=== PATIENT | female | born 1995 | race Caucasian/White ===

== ENCOUNTER 2017-09-25 21:55 | Observation (INO) | payer OTHER ==
[~2017-09-25] VITALS: Ht 165.1 cm; Wt 66.6 kg
[2017-09-25 21:45] VITALS: BP 123/59; PULSE 63; RESP 17; TEMP 98; O2SAT 99
[~2017-09-25 21:55] MED LIST: DICY10CA12 PO; NORE1TAB57 PO; OMEP20TA93 PO; WHEA1POW13 PO
[2017-09-25] MEDS ORDERED: IOHEXOL 350 MG/ML 10 ML VIAL (for RAD DIAG) IVCONTRAST ONE (22:06)
[2017-09-25] MEDS ORDERED: ONDANSETRON ODT 4 MG TAB PO PRN (23:15)
[2017-09-25] MEDS: NS + KCL 20 MEQ INJ 1,000 ML IV SCH (23:41)
[2017-09-25] MEDS: PANTOPRAZOLE SODIUM 40 MG VIAL IV PUSH SCH (23:42)
[2017-09-25] MEDS: MORPHINE SULFATE 4 MG/ML INJ IV PRN (23:42)
[2017-09-26 04:20] VITALS: BP 118/62; PULSE 62; RESP 16; TEMP 98; O2SAT 99
[2017-09-26 07:48] LABS: ALBUMIN 3.4 GM/DL (3.4-5.0); AST (GOT) 15 U/L (15-37); BICARBONATE 24.9 MEQ/L (21.0-32.0); BLOOD UREA NITROGEN 8 MG/DL (7-18); CALCIUM 8.4 MG/DL (8.5-10.1); CHLORIDE 108 MEQ/L (98-107); CREATININE 0.62 MG/DL (0.50-1.00); GLOMERULAR FILTRATION RATE 122 ML/MIN (>89); GLUCOSE,RANDOM 79 MG/DL (74-106); SODIUM (NA) 141 MEQ/L (136-145)
[2017-09-26 07:50] LABS: ALKALINE PHOSPHATASE 31 U/L (45-117); ALT (GPT) 20 U/L (10-53); TOTAL BILIRUBIN ADULT 0.6 MG/DL (0.2-1.0); TOTAL PROTEIN 6.8 GM/DL (6.4-8.2)
[2017-09-26 08:00] VITALS: BP 101/57; PULSE 79; RESP 14; TEMP 98.9; O2SAT 99
[2017-09-26] MEDS: MORPHINE SULFATE 4 MG/ML INJ IV PRN (08:20)
[2017-09-26] MEDS: NS + KCL 20 MEQ INJ 1,000 ML IV SCH ×2 (09:21→20:43)
[2017-09-26] MEDS: SUCRALFATE 1 GM/10 ML CUP PO SCH ×4 (09:28→20:43)
[2017-09-26] MEDS ORDERED: ACETAMINOPHEN 500 MG CPLT PO PRN (10:00)
[2017-09-26] MEDS ORDERED: ACETAMINOPHEN 325 MG TAB PO ONE (10:00)
--- NOTE | 2017-09-26 10:47 | HHI.HP ---
HPI Service CP Hospitalists Primary Care Physician Unknown Admission Diagnosis Intractable pain Chief Complaint: Abdominal pain Travel History International Travel<30 Days: No Contact w/Intl Traveler <30 Da: No Traveled to Known Affected Are: No History of Present Illness This a 22-year-old female patient with past medical history which includes abdominal pain and constipation. Patient presented to [facility] [place] for evaluation of epigastric pain. Pain started suddenly this afternoon, while using the bathroom. Patient located in the midepigastric area described as throbbing in nature. Pain associated with nausea and vomiting. Patient had one episode of nonbilious nonbloody vomiting prior to presenting to the ER. Patient had drank coffee about four hours prior to this event. Last night patient had 10/10 constant epigastric pain. Pain has improved with Morphine. Patient denies fever, chills, dysuria, increased urinary frequency. Patient endorses issues with bowel patterns her, "whole life." Patient has had intermitted episodes if constipation with hard round pebble like stools varying with liquid diarrhea. Patient has had similar episodes of abdominal pain in the past. Patient reports pain worse with foods high in carbohydrates such as pasta and bread. Patient also reports abdominal pain after drinking coffee. Review of Systems Constitutional: DENIES: Fatigue, Fever, Chills Respiratory: DENIES: Cough, Sputum production, Shortness of breath Cardiovascular: DENIES: Chest pain, Palpitations, Dyspnea on Exertion, Lower Extremity Edema Gastrointestinal: COMPLAINS OF: Abdominal pain, Constipation, Diarrhea, Nausea , Vomiting, DENIES: Black stools, Bloody stools, BRB per rectum Neurologic: DENIES: Abnormal gait, Headache, Localized weakness, Speech Problems Psychiatric: DENIES: Anxiety, Confusion, Depression Past Family Social History Past Medical History Abdominal pain, chronic constipation Past Surgical History No prior surgeries Reported Medications Reports she does not take any medications on a daily basis Allergies: Coded Allergies: No Known Allergies (Unverified Allergy, Unknown, 09/25/17) Family History Reviewed and noncontributory Social History Occasional EtOH use Denies tobacco use or illicit drug use Physical Exam Vital Signs Vital Signs Date Time Temp Pulse Resp B/P (MAP) Pulse Ox O2 Delivery O2 Flow Rate FiO2 09/26/17 08:25 17 09/26/17 08:00 98.9 79 14 101/57 (72) 99 09/26/17 04:20 98.0 62 16 118/62 (80) 99 09/25/17 21:45 98.0 63 17 123/59 (80) 99 Physical Exam GENERAL: This is a well-nourished, well-developed patient, in no apparent distress. SKIN: No rashes, ecchymoses or lesions. Cool and dry. HEAD: Atraumatic. Normocephalic. No temporal or scalp tenderness. EYES: Pupils equal round and reactive. Extraocular motions intact. No scleral icterus. No injection or drainage. ENT: Nose without bleeding, purulent drainage or septal hematoma. Throat without erythema, tonsillar hypertrophy or exudate. Uvula midline. Airway patent. NECK: Trachea midline. No JVD or lymphadenopathy. Supple, nontender, no meningeal signs. CARDIOVASCULAR: Regular rate and rhythm without murmurs, gallops, or rubs. RESPIRATORY: Clear to auscultation. Breath sounds equal bilaterally. No wheezes , rales, or rhonchi. GASTROINTESTINAL: Abdomen soft, non-tender, nondistended. No hepato-splenomegaly , or palpable masses. No guarding. MUSCULOSKELETAL: Extremities without clubbing, cyanosis, or edema. No joint tenderness, effusion, or edema noted. No calf tenderness. Negative Homans sign bilaterally. NEUROLOGICAL: Awake and alert. Cranial nerves II through XII intact. Motor and sensory grossly within normal limits. Five out of 5 muscle strength in all muscle groups. Normal speech. Laboratory Laboratory Tests Test 09/26/17 06:48 Blood Urea Nitrogen 8 Creatinine 0.62 Random Glucose 79 Total Protein 6.8 Albumin 3.4 Calcium Level 8.4 Alkaline Phosphatase 31 Aspartate Amino Transf (AST/SGOT) 15 Alanine Aminotransferase (ALT/SGPT) 20 Total Bilirubin 0.6 Sodium Level 141 Potassium Level 3.8 Chloride Level 108 Carbon Dioxide Level 24.9 Anion Gap 8 Estimat Glomerular Filtration Rate 122 Result Diagram: 09/26/17 0648 Caprini VTE Risk Assessment Caprini VTE Risk Assessment: No/Low Risk (score <= 1) Caprini Risk Assessment Model Point Value = 1 Point Value = 2 Point Value = 3 Point Value = 5 Age 41-60 Minor surgery BMI > 25 kg/m2 Swollen legs Varicose veins or History of unexplained or recurrent spontaneous Oral contraceptives or hormone replacement Sepsis (< 1 month) Serious lung disease, including pneumonia (< 1 month) Abnormal pulmonary function Acute myocardial infarction Congestive heart failure (< 1 month) History of inflammatory bowel disease Medical patient at bed rest Age 61-74 Arthroscopic surgery Major open surgery (> 45 min) Laparoscopic surgery (> 45 min) Malignancy Confined to bed (> 72 hours) Immobilizing plaster cast Central venous access Age >= 75 History of VTE Family history of VTE Factor V Leiden Prothrombin [id number] Lupus anticoagulant Anticardiolipin antibodies Elevated serum homocysteine Heparin-induced thrombocytopenia Other congenital or acquired thrombophilia Stroke (< 1 month) Elective arthroplasty Hip, pelvis, or leg fracture Acute spinal cord injury (< 1 month) Prophylaxis Regimen Total Risk Factor Score Risk Level Prophylaxis Regimen 0-1 Low Early ambulation 2 Moderate Order ONE of the following: *Sequential Compression Device (SCD) *Heparin 5000 units SQ BID 3-4 Higher Order ONE of the following medications: *Heparin 5000 units SQ TID *Enoxaparin/Lovenox 40 mg SQ daily (WT < 150 kg, CrCl > 30 mL/min) *Enoxaparin/Lovenox 30 mg SQ daily (WT < 150 kg, CrCl > 10-29 mL/min) *Enoxaparin/Lovenox 30 mg SQ BID (WT < 150 kg, CrCl > 30 mL/min) AND/OR *Sequential Compression Device (SCD) 5 or more Highest Order ONE of the following medications: *Heparin 5000 units SQ TID (Preferred with Epidurals) *Enoxaparin/Lovenox 40 mg SQ daily (WT < 150 kg, CrCl > 30 mL/min) *Enoxaparin/Lovenox 30 mg SQ daily (WT < 150 kg, CrCl > 10-29 mL/min) *Enoxaparin/Lovenox 30 mg SQ BID (WT < 150 kg, CrCl > 30 mL/min) AND *Sequential Compression Device (SCD) Assessment and Plan Problem List: (1) Intractable abdominal pain ICD Codes: R10.9 - Unspecified abdominal pain Plan: Intractable abdominal pain Intermitted constipation/diarrhea ?? IBS This a 22-year-old female patient with past medical history which includes abdominal pain and constipation. Patient presented to [facility] [place] for evaluation of severe sudden onset epigastric pain associated with non-bilious nonbloody vomiting 1 CT abd/pelvis without contrast (09/25) Conclusion: Negative CT scan of the abdomen pelvis without contrast. Lack of intravenous contrast doesn't injection of pyelonephritis and appendicitis as in person difficult. I do not see inflammatory changes. Acetaminophen as needed for headache Morphine IV as needed for pain Protonix 40 mg IV Q24H Sucralfate 1 gram ACHS Clear liquid diet NPO after midnight GI consult, plan EGD/colonoscopy tomorrow DVT prophylaxis with SCDs Assessment and Plan Patient examined. Assessment and plan formulated with Caitie Iyer PA-C. I agree with the above. pt with intermittent epigastric pains and bloating. says she has alternating constipation with diarrhea. ?irritable bowel syndrome. she is seeing GI. egd/colon/ct pending. d/c tomorrow after above if ok with GI and f/u. Caitie Iyer September 26, 2017 10:47 Marc Gutierrez MD September 26, 2017 17:47
[2017-09-26 12:00] VITALS: BP 109/61; PULSE 71; RESP 15; TEMP 97.2; O2SAT 98
--- NOTE | 2017-09-26 12:12 | PD.CONS ---
HPI History of Present Illness This is a 22 year old female who presents for epigastric pain, nausea and vomiting. She has been having these symptoms intermittently since January, about once ever 1-2 weeks. Current episode started yesterday and was the worst yet. SHe saw Dr Lin in [place] and had EGD with finding chemical gastritis , irregular z line. He ordered a CT scan shich she says was negative. Stool studies done at taht time were negative. She was put on a PPI and does not think it has helped. She also admits chronic intermittent loose watery stools 1 -2 times daily and irregular bowel habits. She takes no medications. Never had a colonoscopy. Denies blood in stool or emesis. (Yue Gardner) PFSH Past Medical History chronic loose watery stool Past Surgical History denies (Yue Gardner) Coded Allergies: No Known Allergies (Unverified Allergy, Unknown, 09/25/17) Family History none Social History drinks 1-2 times weekly, social events no tobacco or illicit drug use (Yue Gardner) Review of Systems Constitutional: DENIES: Fever, Weight loss Endocrine: DENIES: Polydipsia Eyes: DENIES: Blurred vision Ears, nose, mouth, throat: DENIES: Hearing loss Respiratory: DENIES: Cough Cardiovascular: DENIES: Chest pain Gastrointestinal: COMPLAINS OF: Abdominal pain, Diarrhea, Nausea, Vomiting, DENIES: Black stools, Bloody stools, Hematemesis Genitourinary: DENIES: Hematuria Musculoskeletal: DENIES: Joint Swelling Integumentary: DENIES: Abnormal pigmentation Hematologic/lymphatic: DENIES: Bruising Immunologic/allergic: DENIES: Eczema Neurologic: DENIES: Abnormal gait Psychiatric: DENIES: Confusion (Yue Gardner) GI Exam Vitals I&O Vital Signs Date Time Temp Pulse Resp B/P (MAP) Pulse Ox O2 Delivery O2 Flow Rate FiO2 09/26/17 08:25 17 09/26/17 08:00 98.9 79 14 101/57 (72) 99 09/26/17 04:20 98.0 62 16 118/62 (80) 99 09/25/17 21:45 98.0 63 17 123/59 (80) 99 I/O 5/14/18 5/09/25/17 09/26/17 09/26/17 09/26/17 07:00 15:00 23:00 07:00 15:00 23:00 Intake Total 0 ml 400 ml Balance 0 ml 400 ml Intake Oral 0 ml 400 ml # Voids 1 3 # Bowel Movements 0 0 Laboratory Test 09/26/17 06:48 Blood Urea Nitrogen 8 MG/DL Creatinine 0.62 MG/DL Random Glucose 79 MG/DL Total Protein 6.8 GM/DL Albumin 3.4 GM/DL Calcium Level 8.4 MG/DL Alkaline Phosphatase 31 U/L Aspartate Amino Transf (AST/SGOT) 15 U/L Alanine Aminotransferase (ALT/SGPT) 20 U/L Total Bilirubin 0.6 MG/DL Sodium Level 141 MEQ/L Potassium Level 3.8 MEQ/L Chloride Level 108 MEQ/L Carbon Dioxide Level 24.9 MEQ/L Anion Gap 8 MEQ/L Estimat Glomerular Filtration Rate 122 ML/MIN Physical Examination HEENT: PERRL; normocephalic; atraumatic; no jaundice. CHEST: CTA CARDIAC: RRR ABDOMEN: Soft, nondistended, epigastric and LUQ TTP; no hepatosplenomegaly; bowel sounds are present in all four quadrants. EXTREMITIES: No clubbing, cyanosis, or edema. SKIN: Normal; no rash; no jaundice. SCHOOL COMMUNITY RELATIONS COORDINATOR: No focal deficits; alert and oriented times three. (Yue Gardner) Assessment and Plan Plan ASSESSMENT - abd pain, n/v - intermittent LUQ and epigastric pain with n/v since January. Had EGD 05/2017 showed irr z line, chemical gastritis. CT scan w/o contrast done at [facility] was negative. labs are unremarkable - irregular bowel habits, loose water stool- intermittent loose watery stools, chronic. never had colonsocopy. unk etiology will get colonoscopy, r/o collagenous colitis, microscopic colitis, IBD. PLAN - CT with IV contrast - EGD and colonoscopy tomorrow - obtain consent - clear liquids today - Mg citrate prep - further recs to follow pt seen by myself and Dr Toro and this note is on her behalf (Yue Gardner) Physician Comments seen, examined agree with above (Merna Toro MD) Yue Gardner September 26, 2017 12:12 Merna Toro MD September 26, 2017 15:40
[2017-09-26] MEDS ORDERED: DIATRIZOATE MEGLUM/DIATRIZOATE SOD 9 ML CUP PO ONE (14:45)
[2017-09-26 16:00] VITALS: BP 116/65; PULSE 77; RESP 16; TEMP 97.5; O2SAT 100
[2017-09-26] MEDS ORDERED: MAGNESIUM CITRATE SOLN 300 ML BTL PO ONE ×2 (16:00→18:00)
--- NOTE | 2017-09-26 19:27 | RADRPT ---
EXAM DATE/TIME: 09/26/2017 18:29 2 [facility] COMPARISON: No previous studies available for comparison. INDICATIONS : Epigastric and left upper quadrant pain with nausea and vomiting,intermittent loose atery stools IV CONTRAST: 81 cc Omnipaque 350 (iohexol) IV ORAL CONTRAST: Prescribed oral contrast ingested. RADIATION DOSE: 6.74 CTDIvol (mGy) MEDICAL HISTORY : None SURGICAL HISTORY : None. ENCOUNTER: Initial ACUITY: 2 days PAIN SCALE: 2/10 LOCATION: Abdomen TECHNIQUE: Volumetric scanning of the abdomen and pelvis was performed. Using automated exposure control and ad justment of the mA and/or kV according to patient size, radiation dose was kept as low as reasonably achievable to obtain optimal diagnostic quality images. DICOM format image data is available electro nically for review and comparison. FINDINGS: LOWER LUNGS: The visualized lower lungs are clear. LIVER: Homogeneous density without lesion. There is no dilation of the biliary tree. No calcified gallston es. SPLEEN: Normal size without lesion. PANCREAS: Within normal limits. KIDNEYS: Normal in size and shape. There is no mass, stone or hydronephrosis. ADRENAL GLANDS: Within normal limits. VASCULAR: There is no aortic aneurysm. BOWEL/MESENTERY: The stomach, small bowel, and colon demonstrate no acute abnormality. There is no free intraperitone al air or fluid. ABDOMINAL WALL: Within normal limits. RETROPERITONEUM: There is no lymphadenopathy. BLADDER: No wall thickening or mass. REPRODUCTIVE: Minimal free pelvic fluid. No evidence of adnexal mass. INGUINAL: There is no lymphadenopathy or hernia. MUSCULOSKELETAL: Within normal limits for patient age. CONCLUSION: No acute CT findings in the abdomen or pelvis. Yared Bran MD on September 26, 2017 at 19:16 Board Certified Radiologist. This report was verified electronically.
[2017-09-26 20:45] VITALS: BP 104/56; PULSE 61; RESP 16; TEMP 98; O2SAT 99
[2017-09-26] MEDS: PANTOPRAZOLE SODIUM 40 MG VIAL IV PUSH SCH (23:49)
[2017-09-27] VITALS: BP 110/59; PULSE 62; RESP 17; TEMP 97.6; O2SAT 100
[2017-09-27] MEDS ORDERED: CHLORHEXIDINE GLUCONATE 2 % 1 PACK (2 CLOTHS) TOPICAL PRN (02:30)
[2017-09-27] MEDS ORDERED: LACTATED RINGER'S 1000 ML IV PRN (02:30)
[2017-09-27] MEDS ORDERED: POVIDONE IODINE 5% (ANTISEPSIS KIT) 4 APPLICATIONS EACH NARE PRN (02:30)
[2017-09-27] MEDS ORDERED: SODIUM CHLORID 0.9% 500 ML IV PRN (02:30)
[2017-09-27 04:15] VITALS: BP 98/59; PULSE 70; RESP 16; TEMP 97; O2SAT 99
[2017-09-27] MEDS: NS + KCL 20 MEQ INJ 1,000 ML IV SCH ×2 (04:56→06:56)
[2017-09-27] MEDS: SUCRALFATE 1 GM/10 ML CUP PO SCH ×2 (08:00→13:47)
--- NOTE | 2017-09-27 09:57 | GIPROC ---
[facility] [address] [facility]. [facility], [address] EGD PROCEDURE REPORT EXAM DATE: 09/27/2017 PATIENT NAME: Vonda Carr MR #: [id number] BIRTHDATE: 1995 ATTENDING: Merna Toro MD ORDER #: [id number] COPYRIGHT MANAGER: Nova Aguirre RN STATUS: inpatient INDICATIONS: The patient is a 22 yr old female here for an EGD due to abdominal pain PROCEDURE PERFORMED: EGD w/ biopsy MEDICATIONS: None and Per Anesthesia. TOPICAL ANESTHETIC: none CONSENT: The patient understands the risks and benefits of the procedure and understands that these risks include, but are not limited to: sedation, allergic reaction, infection, perforation and/or bleeding. Alternative means of evaluation and treatment include, among others: physical exam, x-rays, and/or surgical intervention. The patient elects to proceed with this endoscopic procedure. medical equipment was checked for proper function. Hand hygiene and appropriate measures for infection prevention was taken. After the risks, benefits and alternatives of the procedure were thoroughly explained, Informed consent was verified, confirmed and timeout was successfully executed by the treatment team. The patient was anesthetized with topical anesthesia and the EC-3490Li (Pedi C) endoscope was introduced through the mouth and advanced to the second portion of the duodenum. Retroflexed views revealed a hiatal hernia The gastroscope was then slowly withdrawn and removed. Duodenum normal-biopsu second portion and bulb to r/o celiac disease gastritis antrum-biopsy esophagitis distal esophagus-biopsy. ADVERSE EVENTS: There were no complications. IMPRESSIONS: 1. Duodenum normal-biopsu second portion and bulb to r/o celiac disease gastritis antrum-biopsy esophagitis distal esophagus-biopsy 2. Retroflexed views revealed a hiatal hernia RECOMMENDATIONS: 1. Await biopsy results. Biopsy results will not be ready for 7-10 days. If you don't hear from us in two weeks, call our office for biopsy results. 2. Anti-reflux regimen 3. Continue PPI PATIENT CONDITION: stable DISPOSITION: Inpatient REPEAT EXAM: Return 3 years EGD Merna Toro MD eSigned: Merna Toro MD 09/27/2017 9:57 AM cc:
--- NOTE | 2017-09-27 10:00 | GIPROC ---
[facility] [address] [facility]. [facility], [address] COLONOSCOPY PROCEDURE REPORT EXAM DATE: 09/27/2017 PATIENT NAME: Vonda Carr MR #: [id number] BIRTHDATE: 1995 ENDOSCOPIST: Merna Toro MD ORDER #: [id number] CLINICAL NURSING COORDINATOR: Nova Aguirre RN STATUS: inpatient INDICATIONS: The patient is a 22 yr old female here for a colonoscopy due to abdominal pain, constipation, diarrhea PROCEDURE PERFORMED: Colonoscopy with biopsy MEDICATIONS: None and Per Anesthesia. PREP QUALITY: good PREP TYPE:Other: ESTIMATED BLOOD LOSS: None CONSENT: The patient understands the risks and benefits of the procedure and understands that these risks include, but are not limited to: sedation, allergic reaction, infection, perforation and/or bleeding. Alternative means of evaluation and treatment include, among others: physical exam, x-rays, and/or surgical intervention. The patient elects to proceed with this endoscopic procedure. medical equipment was checked for proper function. Hand hygiene and appropriate measures for infection prevention was taken. After the risks, benefits and alternatives of the procedure were thoroughly explained, Informed consent was verified, confirmed and timeout was successfully executed by the treatment team. A digital exam revealed hemorrhoids The Pentax EC-3490Li endoscope was introduced through the anus and advanced to the cecum, which was identified by both the appendix and ileocecal valve. The instrument was then slowly withdrawn as the colon was fully examined. COLON FINDINGS: Normal colonoscopy-biopsy ascending and descending colon. Retroflexed views revealed internal hemorrhoids and Retroflexed views revealed small internal hemorrhoids The scope was then completely withdrawn from the patient and the procedure terminated. PROCEDURE WITHDRAWAL TIME:6minutes ADVERSE EVENTS: There were no complications. IMPRESSIONS: 1. Normal colonoscopy-biopsy ascending and descending colon 2. Retroflexed views revealed internal hemorrhoids 3. Retroflexed views revealed small internal hemorrhoids 4. Revealed hemorrhoids RECOMMENDATIONS: 1. Await biopsy results. Biopsy results will not be ready for 7-10 days. If you don't hear from us in two weeks, call our office for results. 2. Benefiber 2 tsp daily 3. Probiotics fiber supplements bentyl prn for abdominal pain hida scan if negative ok to dc home from [facility] 2 weeks RECALL: Return 10 years Colonoscopy Merna Toro MD eSigned: Merna Toro MD 09/27/2017 10:00 AM cc:
[2017-09-27] MEDS ORDERED: DICYCLOMINE HCL 20 MG TAB PO PRN (10:15)
[2017-09-27] MEDS ORDERED: LIDOCAINE HCL 1% PF 5 ML SYRINGE OTHER ONE (12:00)
[2017-09-27] MEDS ORDERED: PROPOFOL 200 MG/20 ML AMP IV ONE (12:00)
[2017-09-27] MEDS ORDERED: SINCALIDE 5 MCG/5 ML VIAL IV ONE (12:22)
--- NOTE | 2017-09-27 13:01 | HHI.PR ---
Subjective Remarks Pt just returned from EGD/colonoscopy and HIDA scan No new complaints Tolerating oral intake Objective Vitals Vital Signs Date Time Temp Pulse Resp B/P (MAP) Pulse Ox O2 Delivery O2 Flow Rate FiO2 09/27/17 04:15 97.0 70 16 98/59 (72) 99 09/27/17 00:00 97.6 62 17 110/59 (76) 100 09/26/17 20:45 98.0 61 16 104/56 (72) 99 09/26/17 16:00 97.5 77 16 116/65 (82) 100 09/27/17 09/27/17 09/28/17 15:00 23:00 07:00 Intake Total 600 ml Balance 600 ml Other 600 ml Result Diagram: 09/26/17 0648 Other Results Laboratory Tests Test 09/26/17 06:48 Blood Urea Nitrogen 8 MG/DL Creatinine 0.62 MG/DL Random Glucose 79 MG/DL Total Protein 6.8 GM/DL Albumin 3.4 GM/DL Calcium Level 8.4 MG/DL Alkaline Phosphatase 31 U/L Aspartate Amino Transf (AST/SGOT) 15 U/L Alanine Aminotransferase (ALT/SGPT) 20 U/L Total Bilirubin 0.6 MG/DL Sodium Level 141 MEQ/L Potassium Level 3.8 MEQ/L Chloride Level 108 MEQ/L Carbon Dioxide Level 24.9 MEQ/L Anion Gap 8 MEQ/L Estimat Glomerular Filtration Rate 122 ML/MIN Imaging Last Impressions Hepatobiliary Scan Nuclear Medicine 09/27/17 0000 Signed Impressions: Service Date/Time: Wednesday, September 27, 2017 10:34 - CONCLUSION: 1. No evidence for biliary ductal obstruction or hepatocellular dysfunction. 2. Significantly decreased gallbladder ejection fraction of less than 10%% with symptomatic (nausea) administration of CCK. Michael Baker MD Abdomen/Pelvis CT 09/26/17 0000 Signed Impressions: Service Date/Time: Tuesday, September 26, 2017 18:29 - CONCLUSION: No acute CT findings in the abdomen or pelvis. Yared Bran MD Objective Remarks General: NAD, AAOx3 Chest: CTA Cardiac: Regular Abd: +BS, soft ND/NT Ext: No edema A/P Problem List: (1) Intractable abdominal pain ICD Codes: R10.9 - Unspecified abdominal pain Plan: Intractable abdominal pain Intermitted constipation/diarrhea ?? IBS - This a 22-year-old female patient with past medical history which includes abdominal pain and constipation. Patient presented to [facility] [place] for evaluation of severe sudden onset epigastric pain associated with non-bilious nonbloody vomiting 1 - CT abd/pelvis without contrast (09/25) -->Negative CT scan of the abdomen pelvis without contrast. Lack of intravenous contrast doesn't injection of pyelonephritis and appendicitis as in person difficult.I do not see inflammatory changes. - Acetaminophen as needed for headache - Morphine IV as needed for pain - Protonix 40 mg IV Q24H - Sucralfate 1 gram ACHS - GI following - Pt underwent EGD/colonoscopy (09/27/17) --> gastritis, esophagitis distal esophagus, a hiatal hernia, and normal colonoscopy. Biopsies were taken from the ascending and descending colon and are pending. - HIDA scan was ordered after the procedure today which noted no evidence for biliary ductal obstruction or hepatocellular dysfunction. Significantly decreased gallbladder ejection fraction of less than 10% with symptomatic (nausea) administration of CCK. - Pt will continue Benefiber 2 tsp daily, Probiotics and Bentyl prn for abdominal pain upon discharge per GI - We will have the pt followup with GI in 2 weeks - We will have the pt followup with [facility] General Surgery for review of HIDA scan results per recommendation by Dr. Toro - Pt will continue Protonix 40mg po daily and given a prescription for Zofran PRN nausea - Pt is to follow a low-fat diet Rae Paiz September 27, 2017 13:01
--- NOTE | 2017-09-27 13:24 | RADRPT ---
EXAM DATE/TIME: 09/27/2017 10:34 [facility] COMPARISON: No previous studies available for comparison. INDICATIONS : Abdomen pain with nausea. DOSE: 4.3 mCi Tc99m Mebrofenin IV MEDICATION: 1.33 mcg Cholecystokinin IV; No symptomatic response. Cholecystokinin was administered by slow infusion over 8 minutes beginning at 60 minutes. MEDICAL HISTORY : Gastroparesis. SURGICAL HISTORY : None. ENCOUNTER: Initial ACUITY: 1 day PAIN SCALE: 3/10 LOCATION: Bilateral upper quadrant TECHNIQUE: Following the intravenous administration of radiotracer, dynamic sequential image were performed with continuous acquisition. Time-activity curves were generated. FINDINGS: HEPATIC KINETICS: There is prompt uptake of radiotracer in the liver. No focal defects are seen. There is normal rate of washout from the hepatic parenchyma. BILIARY CLEARANCE: Activity is first seen in the extrahepatic biliary system at 5 minutes. There is normal excretion in to the small bowel. GALLBLADDER: Activity is first seen in the gallbladder at 5 minutes. POST CHOLECYSTOKININ: After Cholecystokinin administration, there is no significant clearance of activity from the gallblad antoine. Ejection fraction is calculated at less than 10%. Common bile duct kinetics are normal and there is no evidence of biliary obstruction. BILIARY ENTERIC REFLUX: None observed. CLINICAL: The patient complained of nausea after Cholecystokinin administration. CONCLUSION: 1. No evidence for biliary ductal obstruction or hepatocellular dysfunction. 2. Significantly decreased gallbladder ejection fraction of less than 10% with symptomatic (nausea) a dministration of CCK. Michael Baker MD on September 27, 2017 at 13:16 Board Certified Radiologist. This report was verified electronically.
[2017-09-27] MEDS ORDERED: DICY20TA10 PO (13:44)
[2017-09-27] MEDS ORDERED: PANT40TA3 PO (13:44)
[2017-09-27] MEDS ORDERED: LACTTAB8 PO (13:44)
--- NOTE | 2017-09-27 13:58 | HHI.DCPOC ---
Discharge Care Plan Diagnosis: (1) Intractable abdominal pain (2) GERD (gastroesophageal reflux disease) Goals to Promote Your Health - Followup with Dr. Toro in 2 weeks to review your biopsy results and for followup on clinical status - Call [facility] General Surgery, Dr. Akira Gregg/Dr. Ray Marquez/Dr. Shoaib Burrell , to make an appt to be seen in 2 weeks regarding HIDA scan results - Patient is to take Protonix 40mg once daily, in the morning 30 minutes prior to oral intake - Patient is to take probiotics, Lactobacillus 2-3 times daily - Patient is to take Zofran 4mg every 6hours as needed for nausea - Patient is to take Bentyl 20mg up to three times daily as needed for abdominal pain Directions to Meet Your Goals Take your medications as prescribed Follow your dietary instruction Follow activity as directed Keep your appointments as scheduled Take your immunizations and boosters as scheduled If your symptoms worsen call your PCP, if no PCP go to Urgent Care Center or Emergency Room Smoking is Dangerous to Your Health. Avoid second hand smoke Call the 24-hour hour crisis hotline for domestic abuse at [facility] September 27, 2017 13:58
[2017-09-27] MEDS ORDERED: ONDA4TAB7 PO (13:59)
== END 2017-09-27 15:45 | disposition home or self-care (01) ==
LOC: NEDDLT 21:55 → N05A 22:05 → INTOOBSV 22:05
PROVIDERS: ADMIT Hospitalist; ATTEND Hospitalist
DX: K21.0 Gastro-esophageal reflux disease with esophagitis (principal); R10.13 Epigastric pain; R11.2 Nausea with vomiting, unspecified; K59.00 Constipation, unspecified; K29.70 Gastritis, unspecified, without bleeding
CPT/HCPCS: 00813; 43239; 45380; 74176; 74177; 78227; 80053; 81001; 83690; 84702; 85025; 88305; 88312; 96361; 96374; 96375; 96376; 99285; A9537; C9113; G0378; J2060; J2270; J2405; J2765; J2805; J3480; J7030; J7120; Q9963; Q9967